=== PATIENT | female | born 1955 | race Caucasian/White ===

== ENCOUNTER 2018-07-06 14:26 | Emergency (ER) | payer MEDICARE, OTHER ==
[2018-07-06 14:32] VITALS: TEMP 98.2
[2018-07-06] MEDS ORDERED: Iohexol 240 (50 ml) PO ONE (15:23)
[2018-07-06] MEDS ORDERED: Sodium Chloride 0.9% 1,000 ML IV STA (15:25)
--- NOTE | 2018-07-06 15:32 | ED PDOC ---
HPI: Chest Pain Time Seen by Provider: 07/06/18 14:56 Chief Complaint (Nursing): Chest Pain Chief Complaint (Provider): Right Upper Quadrant pain History Per: [employer] (Ralph: Wilmer [phone]) History/Exam Limitations: language barrier Additional Complaint(s): Patient is a 63 y/o female who is obese and has history of htn, and diabetes as well as surgical history of varicose veins, cholecystectomy, hernia repair and hysterectomy who presents to the ED complaining of right upper quadrant pain, onset x1 week ago. Patient states that pain is worsened by movement and touching but denies any relation to food. Patient has chills but denies fever, nausea, vomiting, or diarrhea. Past Medical History Reviewed: Historical Data, Nursing Documentation, Vital Signs Vital Signs: Last Vital Signs Temp 98.2 F 07/06/18 14:29 Pulse 52 L 07/06/18 14:29 Resp 16 07/06/18 14:29 BP 119/52 L 07/06/18 14:29 Pulse Ox 98 07/06/18 14:29 - Medical History PMH: Asthma, Depression, Diabetes, HTN - Surgical History Surgical History: Cholecystectomy, Hernia Repair Other surgeries: Hysterectomy, varicose veins - Family History Family History: States: Unknown Family Hx - Social History Current smoker - smoking cessation education provided: No Alcohol: None Drugs: Denies - Immunization History Hx Tetanus Toxoid Vaccination: No Hx Influenza Vaccination: No Hx Pneumococcal Vaccination: No - Home Medications Home Medications: Ambulatory Orders Medication Instructions Recorded Albuterol Sulfate 1 vial NEB Q4 PRN 05/22/14 Asmanex Twisthaler 1 puff INH BID 05/22/14 Bupropion HCl Xl 300 mg PO DAILY 05/22/14 Clonazepam 1 mg PO BID 05/22/14 Hydralazine 25 mg PO BID 05/22/14 Metformin HCl 500 mg PO DAILY 05/22/14 Tramadol HCl 50 mg PO QID PRN 05/22/14 Tramadol Hydrochloride [Tramadol] 1 tab PO TID PRN #10 tab 05/22/14 Triamcinolone 0.5% 1 appl TOP BID 05/22/14 Acetaminophen [Tylenol Extra 2 tab PO Q6 #30 tablet 03/20/16 Strength] Cyclobenzaprine [Cyclobenzaprine 10 mg PO TID #15 tab 03/20/16 HCl] Lidocaine 5% [Lidoderm] 1 ea TD BID PRN #20 patch 03/20/16 Naproxen 500 mg PO BID #30 tab 03/20/16 - Allergies Allergies/Adverse Reactions: Allergies Allergy/AdvReac Type Severity Reaction Status Date / Time Penicillins Allergy Intermediate RASH Verified 07/06/18 14:28 Review of Systems ROS Statement: Except As Marked, All Systems Reviewed And Found Negative Constitutional: Positive for: Chills. Negative for: Fever Gastrointestinal: Positive for: Abdominal Pain (RUQ ). Negative for: Nausea, Vomiting, Diarrhea Physical Exam - Reviewed Nursing Documentation Reviewed: Yes Vital Signs Reviewed: Yes - Physical Exam Appears: Positive for: Non-toxic (obese), No Acute Distress Head Exam: Positive for: ATRAUMATIC, NORMOCEPHALIC Skin: Positive for: Normal Color, Warm, Dry Eye Exam: Positive for: EOMI, Normal appearance, PERRL Neck: Positive for: Normal, Painless ROM, Supple Gastrointestinal/Abdominal: Positive for: Tenderness (RUQ) Extremity: Positive for: Normal ROM, Other (RLE have popped blisters from chronic venous stasis, do not look infected; no cellulitis). Negative for: Pedal Edema, Deformity Neurologic/Psych: Positive for: Alert, Oriented. Negative for: Motor/Sensory Deficits - Laboratory Results Result Diagrams: 07/06/18 16:55 07/06/18 16:55 - ECG O2 Sat by Pulse Oximetry: 98 (RA) Pulse Ox Interpretation: Normal Medical Decision Making Medical Decision Making: Time: 15:23 Impression: Right upper quadrant pain Initial Plan: CT Abd/Pelvis CMP Lipase CBC w/ diff IV fluids 200 mls/hr Omnipaque Time: 19:50 Reading by: [facility] CT Abd/Pelvis Impression: No suspicious mass or lymphadenopathy or free fluid within the abdomen and pelvis. Status post cholecystectomy. Postsurgical changes. Small anterior wall abdominal hernia. Kidneys within normal limits. Moderate compression deformity of the L2 vertebral body and advanced hypertrophic and degenerative changes within the lumbosacral spine. Minimal anterolisthesis L4-L5 level. Clinical correlation advised Time: 20:29 Patient has no back pain. ----- Scribe Attestation: Documented by Jodran La, acting as a scribe for Corey Russ MD Provider Scribe Attestation: All medical record entries made by the Scribe were at my direction and personally dictated by me. I have reviewed the chart and agree that the record accurately reflects my personal performance of the history, physical exam, medical decision making, and the department course for this patient. I have also personally directed, reviewed, and agree with the discharge instructions and d isposition. Disposition - Clinical Impression Clinical Impression: Abdominal pain - Disposition Condition: IMPROVED Forms: [employer] (Latvian)
[2018-07-06 17:01] VITALS: RESP 18
[2018-07-06 17:01] LABS: BASO # 0.1 K/uL (0.0-0.2); BASO % 1.3 % (0.0-2.0); EOS # 0.1 K/uL (0.0-0.7); EOS % 2.2 % (0.0-4.0); HEMOGLOBIN 13.1 g/dL (12.0-16.0); LYMPH # 1.9 K/uL (1.0-4.3); MEAN CORPUSCULAR HEMOGLOBIN 27.4 pg (27.0-31.0); MEAN CORPUSCULAR HGB CONC 32.6 g/dL (33.0-37.0); MEAN PLATELET VOLUME 10.5 fl (7.2-11.7); MONO # 0.5 K/uL (0.0-0.8); MONO % 7.7 % (0.0-10.0); NEUT # 3.9 K/uL (1.8-7.0); NEUT % 59.8 % (50.0-75.0); RBC 4.78 Mil/uL (3.80-5.20); RED CELL DISTRIBUTION WIDTH 14.7 % (11.5-14.5); WHITE BLOOD COUNT 6.5 K/uL (4.8-10.8)
[2018-07-06] MEDS ORDERED: Iohexol 240 (50 ml) ONE (17:02)
[2018-07-06 17:24] LABS: BLOOD UREA NITROGEN 20 mg/dl (7-17); GFR NON-AFRICAN AMERICAN 56; LIPASE 79 U/L (23-300)
[2018-07-06 17:33] LABS: ALBUMIN 3.9 g/dL (3.5-5.0); ALT/SGPT 43 U/L (9-52); AST/SGOT 66 U/L (14-36)
[2018-07-06] MEDS ORDERED: Iohexol 300 100 ML IJ ONE (18:43)
[2018-07-06] MEDS ORDERED: Sodium Chloride 0.9% 50 ML IV ONE (18:43)
[2018-07-06 20:28] VITALS: O2SAT 98
[2018-07-06 20:53] VITALS: BP 133/84; PULSE 72
--- NOTE | 2018-07-07 11:35 | CT ---
Date of service: 07/06/2018 PROCEDURE: CT Abdomen and Pelvis with contrast HISTORY: abd pain r sided upper COMPARISON: None. TECHNIQUE: Contrast dose: 100 ML OMNIPAQUE 300 Radiation dose: Total exam DLP = 1722.77 mGy-cm. This CT exam was performed using one or more of the following dose reduction techniques: Automated exposure control, adjustment of the mA and/or kV according to patient size, and/or use of iterative reconstruction technique. FINDINGS: LOWER THORAX: Unremarkable. LIVER: Unremarkable. No gross lesion or ductal dilatation. GALLBLADDER AND BILE DUCTS: STATUS POST CHOLECYSTECTOMY. COMMON BILE DUCT NORMAL CALIBER. PANCREAS: Unremarkable. No gross lesion or ductal dilatation. SPLEEN: Unremarkable. ADRENALS: Unremarkable. No mass. KIDNEYS AND URETERS: Unremarkable. No hydronephrosis. No solid mass. VASCULATURE: Unremarkable. No aortic aneurysm. BOWEL: Diverticulosis INVOLVING THE TRANSVERSE COLON AND SPLENIC FLEXURE WITHOUT EVIDENCE OF DIVERTICULITIS. No bowel obstruction. No other abnormal bowel loops are appreciated. APPENDIX: Not visualized. No secondary findings. PERITONEUM: No ascites. No pneumoperitoneum. At least 2 ventral abdominal hernias containing only mesenteric fat, 1 supraumbilical and 1 infraumbilical. LYMPH NODES: Unremarkable. No enlarged lymph nodes. BLADDER: Unremarkable. REPRODUCTIVE: Status post hysterectomy BONES: Compression fracture of L2 vertebral likely chronic. Chronicity not demonstrated on the basis of this examination. No other fracture identified. OTHER FINDINGS: None. IMPRESSION: No acute abnormality. Diverticulosis without evidence of diverticulitis. No bowel obstruction. Minor findings as above. The preliminary findings for this examination were reported by [facility] at 7:51 p.m. on 07/06/2018. There is concurrence of this report with the preliminary findings.
== END 2018-07-06 20:40 | disposition home or self-care (01) ==
LOC: H.ER 14:26
DX: R10.11 Right upper quadrant pain (principal); I10 Essential (primary) hypertension; E11.9 Type 2 diabetes mellitus without complications
CPT/HCPCS: 74177; 80053; 83690; 85025; 99284; J7030; Q9966; Q9967